=== PATIENT | female | born 1970 | race Caucasian/White ===

== ENCOUNTER 2019-10-19 10:30 | Emergency (ER) | payer MEDICAID, OTHER ==
[~2019-10-19] VITALS: Ht 167.6 cm; Wt 104.5 kg
[~2019-10-19 10:30] MED LIST: ALPR0.5T PO; CHOL500050 PO; CIPR500T94 PO; CITA40TA12 PO; CLON-77 PO; TRAZ-118 PO; VENL75CA PO
[2019-10-19 10:42] VITALS: BP 156/111
[2019-10-19] MEDS ORDERED: CEPH500C PO (11:42)
[2019-10-19] MEDS ORDERED: MUPI22OI2 TP (11:42)
--- NOTE | 2019-10-19 11:42 | PHYS DOC ---
Past Medical History Past Medical History: Anxiety, Depression, Hypothyroid, Other Additional Past Medical Histor: panic attacks, lock jaw; cervical CA Past Surgical History: Other Additional Past Surgical Histo: head surgery, uterine ablation Smoking Status: Current Every Day Smoker Alcohol Use: None Drug Use: Marijuana General Adult EDM: Chief Complaint: ABSCESS HPI: HPI: Patient is a 49 year old female who presents the emergency department with complaints of a red, tender, indurated area to her right chin that began yesterday. Patient states that a moderate amount of white drainage came out of the site yesterday. She denies any fever, cough, body aches, fatigue, nausea, vomiting, diarrhea, abdominal pain, or shortness of breath. The patient states that she has been holding icepack on the right side of her face to help reduce the pain. She states that her right eye is red after she was holding ice pack on her face. She denies any drainage, discomfort, or itching of the right eye. She currently rates her pain a 5 out of 10 on the pain scale, she states that the pain is worse with touch, it does not radiate. The pain has been alleviated with ice packs. Review of Systems: Review of Systems: Constitutional: Denies fever or chills. [] Eyes: Denies change in visual acuity; see HPI. [] HENT: Denies nasal congestion or sore throat. [] Respiratory: Denies cough or shortness of breath. [] GI: Denies abdominal pain, nausea, vomiting, or diarrhea. [] Musculoskeletal: Denies back pain or joint pain. [] Integument: See HPI Neurologic: Denies headache, Lymphatic: Denies swollen glands. [] Psychiatric: Denies depression or anxiety. [] Heart Score: Risk Factors: Risk Factors: DM, Current or recent (<one month) smoker, HTN, HLP, family history of CAD, obesity. Risk Scores: Score 0 - 3: 2.5% MACE over next 6 weeks - Discharge Home Score 4 - 6: 20.3% MACE over next 6 weeks - Admit for Clinical Observation Score 7 - 10: 72.7% MACE over next 6 weeks - Early Invasive Strategies Allergies: Allergies: Allergies Coded Allergies Type Severity Reaction Last Updated Verified No Known Drug Allergies 04/17/13 No Physical Exam: PE: Constitutional: Well developed, well nourished, no acute distress, non-toxic appearance, obese. [] HENT: Normocephalic, atraumatic, bilateral external ears normal, nose normal. [] Eyes: PERRLA, EOMI, left eye conjunctiva normal, no discharge; right eye conjunctive a injected, no drainage, no swelling, no visible foreign body. [] Neck: Normal range of motion, supple, no stridor. [] Cardiovascular:Heart rate regular rhythm Lungs & Thorax: Respirations even and unlabored, no retractions, no respiratory distress Skin: Warm, dry; 1.5 cm diameter erythemic, indurated area with central scabbing and no fluctuance noted to the right anterior chin, consistent with cutaneous abscess Extremities: No cyanosis, ROM intact, no edema. [] Neurologic: Alert and oriented X 3, no focal deficits noted. [] Psychologic: Affect normal, judgement normal, mood normal. [] Current Patient Data: Vital Signs: Vital Signs Date Time Temp Pulse Resp B/P (MAP) Pulse Ox O2 Delivery O2 Flow Rate FiO2 10/19/19 10:42 98.1 85 18 156/111 (126) 95 Room Air 98.1 EKG: EKG: [] Radiology/Procedures: Radiology/Procedures: [] Course & Med Decision Making: Course & Med Decision Making Pertinent Labs and Imaging studies reviewed. (See chart for details) [] Dragon Disclaimer: Dragon Disclaimer: This electronic medical record was generated, in whole or in part, using a voice recognition dictation system. Departure Departure Impression: Primary Impression: Abscess or cellulitis of chin Disposition: HOME, SELF-CARE Condition: STABLE Referrals: NO PCP (PCP) Patient Instructions: Abscess, [id number] Additional Instructions: Fill the prescription(s) and use as directed. You may take tylenol or ibuprofen as needed for pain. Apply warm, moist packs to the area 3 times a day and as needed to help decrease discomfort. Follow up with your primary care doctor in 1 to 2 days to have wound rechecked. Return to the ER sooner if your symptoms worsen or you develop a fever. Scripts Cephalexin (CEPHALEXIN) 500 Mg Capsule 1 CAP PO QID for 7 Days, #28 CAP 0 Refills Prov: LANCE SCHILLING APRN 10/19/19 Mupirocin (MUPIROCIN OINTMENT) 22 Gm Oint...g. 1 JANE TP TID for WOUND CARE for 7 Days, #1 TUBE 0 Refills Prov: LANCE SCHILLING AIR CONDITIONING MANAGER 10/19/19 Justicifation of Admission Dx: Justifications for Admission: Justification of Admission Dx: N/A LANCE SCHILLING AIR CONDITIONING MANAGER Oct 19, 2019 11:42
== END 2019-10-19 12:45 | disposition home or self-care (01) ==
LOC: ER 10:30
DX: L02.01 Cutaneous abscess of face (principal); E03.9 Hypothyroidism, unspecified; F17.200 Nicotine dependence, unspecified, uncomplicated
CPT/HCPCS: 99283